=== PATIENT | female | born 1960 | race Caucasian/White ===

== ENCOUNTER 2024-10-25 13:31 | Emergency (ER) | payer BC ==
[~2024-10-25] VITALS: Ht 165.1 cm; Wt 58.2 kg
[2024-10-25 15:48] LABS: HEMATOCRIT 35.7 % (36.0-47.0); HEMOGLOBIN 11.4 g/dl (12.0-15.5); MEAN CORPUSCULAR HGB CONC 31.9 g/dl (32.0-36.5); MEAN CORPUSCULAR VOLUME 90.8 fl (80.0-96.0); PLATELET COUNT, AUTOMATED 281 10^3/uL (150-450); RED BLOOD COUNT 3.93 10^6/uL (4.00-5.40); WHITE BLOOD COUNT 13.4 10^3/uL (4.0-10.0)
[2024-10-25 16:10] LABS: EOSINOPHILS 1 % (0-3); LYMPHOCYTES 8 % (16-44); NEUTROPHILS 91 % (28-66); PLATELET ESTIMATE NORMAL (NORMAL)
[2024-10-25 16:15] LABS: BLOOD UREA NITROGEN 8 MG/DL (9-23); CALCIUM LEVEL 8.8 MG/DL (8.3-10.6); CARBON DIOXIDE LEVEL 27 MMOL/L (20-31); CHLORIDE LEVEL 108 MMOL/L (98-107); CREATININE FOR GFR 0.71 MG/DL (0.55-1.30); GLOMERULAR FILTRATION RATE > 90.0 (>45); GLUCOSE, FASTING 100 MG/DL (74-106); POTASSIUM SERUM 4.2 MMOL/L (3.5-5.1); SODIUM LEVEL 142 MMOL/L (136-145)
[2024-10-25 16:16] LABS: ERYTHROCYTE SEDIMENTATION RATE 80 mm/hr (0-30)
[2024-10-25] MEDS ORDERED: PROHANCE 279.3MG/ML 15ML VIAL As Ordered ONE (18:08)
[2024-10-25 21:19] VITALS: BP 117/67; TEMP 97.7; O2SAT 98
== END 2024-10-25 21:47 | disposition home or self-care (01) ==
LOC: M ED 13:31
DX: H53.132 Sudden visual loss, left eye (principal); H15.002 Unspecified scleritis, left eye; F17.210 Nicotine dependence, cigarettes, uncomplicated
CPT/HCPCS: 36415; 70543; 70544; 70553; 80048; 85025; 85652; 99284; A9576

== ENCOUNTER → 2025-02-13 | Outpatient (REF) | payer BC | LOC: M LAB REF 17:03 | PROVIDERS: ATTEND Physician Assistant | DX: J06.9 Acute upper respiratory infection, unspecified (principal) ==